=== PATIENT | female | born 1975 | race Hispanic/Latino ===

== ENCOUNTER 2022-05-22 11:34 | Outpatient (CLI) | payer OTHER, SELFPAY | END 2022-05-22 11:35 | disposition home or self-care (01) | LOC: ANHLAB 11:43 | PROVIDERS: Visit Provider Urology | DX: N39.3 Stress incontinence (female) (male) (principal); Z01.818 Encounter for other preprocedural examination | CPT/HCPCS: 87086; 87088 ==

== ENCOUNTER 2022-05-27 02:13 | Day surgery (SDC) | payer OTHER, SELFPAY ==
--- NOTE | 2022-05-19 16:02 | PM.IMHP ---
H&P: HPI History of Present Illness Date/Time: 05/19/22 16:02 Chief Complaint: Stress incontinence Narrative: 46-year-old stress incontinence. This iron surgical intervention. Alternative options including observation Kegel exercises discussed as well Review of Systems Review of Systems: All systems reviewed & are unremarkable except as noted in HPI and below Exam Narrative: no acute distress normal breathing alert and oriented x3 positive urethral mobility Assessment and Plan Assessment and plan (1) TANNER (stress urinary incontinence, female): Code(s): N39.3 - Stress incontinence (female) (male) Status: Acute Assessment and Plan: urethral sling. Understands risks of bleeding, infection, lack of efficacy, recurrence, hip and leg pain, dyspareunia, obstructive voiding requiring secondary procedure, mesh related complications. Agrees to proceed
[2022-05-20 14:16] VITALS: BMI 31.0
--- NOTE | 2022-05-20 14:23 | PC.NURSE ---
Report to the Outpatient Waiting Room, entrance under the green pavilion located off [facility], at time _0945___ on date __05/27/22__. Planned Procedure Time: _1145_. Time changes happen often and if your time is changed the preop area will call you the afternoon before. - You and your visitor will be asked to self-screen and do not enter if you have any COVID symptoms. - We encourage only one visitor and NO visitors under age 16 are allowed at this time. Your visitor will receive communication by the phone number that is given day of service. - The patient visitor is requested to social distance or may leave the building when not with patient due to restrictions. - A mask is required within the hospital. Patients may have clear liquids (water, carbonated beverages, clear teas, apple juice) until 3 hours prior to surgery with a maximum of 20 ounces. - No food from midnight until time of surgery - Infants may have breast milk until 4 hours before surgery, infant formula 6 hours prior to surgery. - Children will be allowed to drink immediately following surgery. If applicable, please bring a bottle or sippy cup to assist with drinking. Juice, water, soda, and popsicles are readily available. For infants on formula, please bring formula the day of surgery. Pacifiers are allowed. Take the following medications with a SIP of water the morning of surgery: __NONE Medications to discontinue per physician NONE Date to take last dose Please no make-up, nail nepalese, hairspray, perfume, deodorant, or body powder the day of surgery. No jewelry (including any body piercings) or valuables the day of surgery, leave them at home. Please take a shower or bath the night before, or the morning of, surgery with an antibacterial soap. Wear comfortable, loose fitting clothing. Children are encouraged to wear pajamas. - Jewelry must be removed prior to entering the operating room. Rings and piercings that are not removed may be cut off. - The hospital will not accept responsibility for valuables. - Please leave all valuables, including medications, at home the day of surgery. If you are going home after surgery, a licensed tow motor driver must drive you home. - NO public transportation without another adult. - We recommend that an adult stay with you for 24 hours following discharge. - We also recommend that you do not drive, make important decision, drink alcoholic beverages, or take any drugs that were not prescribed by your health care provider for at least 24 hours after your discharge time. For Pediatric surgeries, we recommend two adults accompany the child home. Follow any additional instructions given to you from your surgeon. If you or anyone in your household have experienced Covid symptoms in the past week, please notify your surgeon or the nurse liaison at the phone number below for possible testing. Telephone instructions given to _PATIENT_and asked if any additional questions and then verbalized understanding. Patient advised to call surgeon office or pre surgery nurse liaison [phone] if any additional questions.
--- NOTE | ~2022-05-27 | XR_ITS ---
EXAMINATION: XR retrograde pyelo w/stent RT DATE: 05/27/2022 13:42 INDICATION: Right internal ureteral stent placement TECHNIQUE: Fluoroscopic images from a right internal ureteral stent placement are submitted for ruperto Soto C5 seconds of fluoroscopy time. 72 fluoroscopic images FINDINGS: There is a right double-J internal ureteral stent projecting in expected position, with proximal [place] loop at the level of the renal pelvis and distal loop in the pelvis within the bladder lumen. IMPRESSION: 1. Right internal ureteral stent placement. Please refer to real-time procedural findings for mac weeks. Reviewed, dictated and finalized at location B. IMPRESSION: 1. Right internal ureteral stent placement. Please refer to real-time procedu ral findings for details.
--- NOTE | 2022-05-27 07:14 | WPDHPUPDATE1 ---
History and Physical Update Update Date/Time: 05/27/22 07:14 History and Physical has been reviewed, including an updated exam of the patient. There are NO changes in the patient's condition. Risks, benefits, and alternatives have been discussed and questions answered. Patient agrees to proceed with procedure.
[2022-05-27 10:13] VITALS: BP 126/77; PULSE 80; RESP 16; TEMP 36.6; O2SAT 99
--- NOTE | 2022-05-27 10:53 | P.PNAN_ITS ---
Anes - Initial Pre Proc Eval Procedure: Operation Date: 05/27/22 12:00 Proposed Procedures p Urethral Sling - Doe Dash MD s Right Ureteroscopy, Right Stent Placement, Holmium Laser Procedure - Doe Dash MD Date/Time: 05/27/22 10:53 Surgeon: Doe Dash MD Pre Op Diagnosis: Stress Incont Patient Data Age: 46 Gender: F Height: 1.63 m Weight: 96.8 kg Last Vital Signs Temp 36.6 C 05/27/22 10:13 Pulse 80 05/27/22 10:13 Resp 16 05/27/22 10:13 BP 126/77 05/27/22 10:13 Pulse Ox 99 05/27/22 10:13 O2 Del Method Room Air 05/27/22 10:13 Allergies Allergy/AdvReac Type Severity Reaction Status Date / Time shellfish derived Allergy Severe Anaphylaxis Verified 05/27/22 10:24 Home Medications Medication Instructions Recorded Confirmed Type No Home Medications 05/20/22 05/27/22 History Patient hx anesthesia problems: none Family hx anesthesia problems: none Results Review: All pre-operative results and documents have been reviewed as part of the pre- operative evaluation. [facility] Past Medical History Medical History (Updated 05/27/22 @ 10:54 by Ike Quigley MD) Obesity Surgical History Surgical History (Updated 05/27/22 @ 10:54 by Ike Quigley MD) History of cholecystectomy Social History Social History Smoking status: Never smoker Alcohol intake: current Alcohol use details: 2 PER MONTH Substance use: never Living arrangements: with family Anes - Eval Final PreProcedure Day of Procedure 05/27/22 10:53 Patient weight: obese Heart: regular rate and rhythm Lungs: clear to auscultation Airway: Mallampati scale class II Neurological: alert and oriented Last oral intake: >/= 8 hours ASA classification: II Emergent: no Anesthetic plan: proceed Anesthesia type and monitoring: general LMA and standard monitoring Results Review: All pre-operative results and documents have been reviewed as part of the pre- operative evaluation. Informed Consent: The patient's anesthetic plan and its attendant risks and benefits were discussed with the patient/family/POA. Questions were solicited and answers provided to the satisfaction of the patient/family/POA.
[2022-05-27] MEDS: LACTATED RINGERS 1,000 ML 30 ML IV CONT (11:36)
[2022-05-27] MEDS: ceFAZolin 2 GM/D5W 50 ML 2 GM/50 ML BAG IVPB (11:43)
[2022-05-27] MEDS: BUPIVACAINE/EPINEPHRINE 0.25% 50 ML VIAL INFILTRATE (12:07)
[2022-05-27 13:07] VITALS: BP 119/84; PULSE 101; RESP 18; O2SAT 100
--- NOTE | 2022-05-27 13:18 | W.PM.PROC2 ---
Procedure Note - Detailed Date of Procedure 05/27/22 Pre-op Diagnosis Stress Incont large right ureteral stone Post-op Diagnosis Same Procedure Performed mid urethral sling cystoscopy right retrograde pyelogram right ureteroscopy with laser lithotripsy stent placed Surgeon Doe Dash MD Aquatics Instructor none Anesthesia General Indications This is a female with confirm stress urinary incontinence. She desires surgical correction. She understands the risks of bleeding, infection, injury to the urinary tract, vaginal mesh extrusion, urinary tract mesh erosion, obstructive voiding requiring a secondary procedure, hip and leg pain, dyspareunia, inability to improve overactive bladder symptoms. She agrees to proceed. she also has a very large asymptomatic right ureteropelvic junction stone with moderate hydronephrosis. This stone is 16 mm in size. I was not able to get a lithotripsy machine at the facility today. I will make attempt ureteroscopy as she is going to be under anesthesia. She understands risks of bleeding, infection, damage to the ureter or urinary tract, inability to remove the stone. she understood she may need more than 1 procedure to do with the stone Description of Procedure She was correctly identified. Informed consent obtained. She was brought the operating room. She was given appropriate anesthesia. She was given appropriate perioperative antibiotics. A time-out performed. I marked out the site of the inner thigh incisions. I anesthetized the skin and made those incisions. I anesthetized the anterior vaginal wall over the mid urethra. I made a 1 cm incision. I dissected out laterally taking great care not to injure the refilled vaginal wall. I passed the helical trocars. First on the left. Then on the right. I did this from the thigh incision towards the vaginal incision. The sling was connected to the trocars and brought out through the thigh incision. I tensioned the sling appropriately. I cut and the plastic sheaths. I then closed the incision with 2 0 Vicryl. On cystoscopy there is no tumors or surgical artifact. There was no surgical artifact in the urethra. I cut the excess sling material. Close incisions with glue. I then visualized the stone under fluoroscopy. She had a very large proximal ureteral stone. I performed a right retrograde pyelogram. She had a delicate ureter. The stone was seen as a filling defect. She had moderate hydronephrosis proximal to the stone. I placed a guidewire into the kidney. By placed the guidewire the stone flipped into the midpole area of the kidney. The stone was now out of the ureter. I dilated the ureter with 810 dilator. I placed a 2nd superstiff wire. I placed the ureteral access sheath all the way up into the renal pelvis. This went quite easily without any trauma of the ureter. I then performed ureteroscopy. The stone was encountered. It was very large. Due to the large size of the stone I could not flex the ureteral scope to access all portions of the stone. It was also so large I could not basket the stone and move it into a more favorable location. I did make an attempt to perform holmium laser lithotripsy. I did this with a dusting setting. I dusted for approximately 30 minutes. I made some progress on the stone but again due to the flexion restrictions of the scope I was not able to access all portions of the stone. In light of this and in light of the fact it was now in the kidney I felt it was a more appropriate stone for lithotripsy. At this point I decided to place a stent. I removed the access sheath. I examined the ureter on the way down and there is no sign of any ureteral injury. I then placed a 4.8 variable length stent. Proximal coil was in the renal pelvis. Distal coil in the bladder. Her bladder was drained. She was awakened and transferred to PACU in stable condition. Implants Urethral sling Estimated Blood
[2022-05-27 13:20] VITALS: BP 127/83; PULSE 96; RESP 18; O2SAT 95
[2022-05-27] MEDS: fentaNYL CITRATE INJ (*CRX) 100 MCG/2 ML VIAL 25 MCG IV PUSH (13:20)
[2022-05-27 13:35] VITALS: BP 128/87; PULSE 101; RESP 18; O2SAT 98
[2022-05-27 13:38] VITALS: BP 131/77; PULSE 91; RESP 18
--- NOTE | 2022-05-27 14:00 | SUR.PHASEII ---
VOIDED X 1.
[2022-05-27 14:05] VITALS: BP 127/77; PULSE 91; RESP 18
[2022-05-27] MEDS: oxyCODONE HCL (*CRX) 5 MG TAB IR PO (14:14)
[2022-05-27] MEDS: ONDANSETRON INJ 4 MG/2 ML VIAL IV PUSH (14:28)
== END 2022-05-27 14:45 | disposition home or self-care (01) ==
PROVIDERS: PCP Family Medicine; Visit Provider Urology
PROC: (CPT 57288; principal; 2022-05-27 12:00)
PROC: (CPT 52352; 2022-05-27 12:00)
DX: N39.3 Stress incontinence (female) (male) (principal); N13.2 Hydronephrosis with renal and ureteral calculous obstruction
CPT/HCPCS: 57288; 52356; 74420; A9270; C1769; C1771; C1894; C2617; J0690; J1100; J1200; J2250; J2405; J2704; J3010; J7120

== ENCOUNTER 2022-05-31 01:04 | Day surgery (SDC) | payer OTHER, SELFPAY ==
[2022-05-28 14:54] VITALS: BMI 35.6
--- NOTE | 2022-05-28 14:59 | PC.NURSE ---
Report to the Outpatient Waiting Room, entrance under the green pavilion located off [facility], at time 0600 on date 05/31/22. Planned Procedure Time: 0730. Time changes happen often and if your time is changed the preop area will call you the afternoon before. - You and your visitor will be asked to self-screen and do not enter if you have any COVID symptoms. - We encourage only one visitor and NO visitors under age 16 are allowed at this time. Your visitor will receive communication by the phone number that is given day of service. - The patient visitor is requested to social distance or may leave the building when not with patient due to restrictions. - A mask is OPTIONAL within the hospital. Patients may have clear liquids (water, carbonated beverages, clear teas, apple juice) until 3 hours prior to surgery with a maximum of 20 ounces. - No food from midnight until time of surgery Take the following medications with a SIP of water the morning of surgery: PAIN PILL IF NEEDED Medications to discontinue per physician: N/A Date to take last dose: N/A Please no make-up, nail belizean, hairspray, perfume, deodorant, or body powder the day of surgery. No jewelry (including any body piercings) or valuables the day of surgery, leave them at home. Please take a shower or bath the night before, or the morning of, surgery with an antibacterial soap. Wear comfortable, loose fitting clothing. - Jewelry must be removed prior to entering the operating room. Rings and piercings that are not removed may be cut off. - The hospital will not accept responsibility for valuables. - Please leave all valuables, including medications, at home the day of surgery. If you are going home after surgery, a licensed driver/sales workers must drive you home. - NO public transportation without another adult. - We recommend that an adult stay with you for 24 hours following discharge. - We also recommend that you do not drive, make important decision, drink alcoholic beverages, or take any drugs that were not prescribed by your health care provider for at least 24 hours after your discharge time. Follow any additional instructions given to you from your surgeon. If you or anyone in your household have experienced Covid symptoms in the past week, please notify your surgeon or the nurse liaison at the phone number below for possible testing. Telephone instructions given to PT - SHARLA PATEL and asked if any additional questions and then verbalized understanding. Patient advised to call surgeon office or pre surgery nurse liaison [phone] if any additional questions.
--- NOTE | ~2022-05-31 | XR_ITS ---
EXAMINATION: XR abdomen/kub 1V DATE: 05/31/2022 06:32 INDICATION: Right-sided urolithiasis for planned lithotripsy. TECHNIQUE: A supine view of the abdomen on 2 radiographs was obtained. COMPARISON: 05/27/2022 FINDINGS: Right internal ureteral stent remains in expected position with loops formed in the right renal pelvi s and in the bladder. Unchanged 2.5 x 1.5 similar stone at the right renal pelvis. No other evident u rolithiasis. A few phleboliths in the pelvis. T-shaped IUD in expected position in the central pelvis . Cholecystectomy clips in right upper quadrant. Normal bowel gas pattern. Lung bases are clear. IMPRESSION: 1. 2.5 x 1.5 cm stone at the right renal pelvis with right internal ureteral stent in expected positi on. 2. IUD. Reviewed, dictated and finalized at location A. IMPRESSION: 1. 2.5 x 1.5 cm stone at the right renal pelvis with right internal ureteral st ent in expected position. 2. IUD.
--- NOTE | 2022-05-31 06:36 | P.PNAN_ITS ---
Anes - Initial Pre Proc Eval Procedure: Operation Date: 05/31/22 07:30 Proposed Procedures p Right Extracorporeal Shock Wave Lithotripsy, - Luis Deleon MD s Possible Cystoscopy, Possible Right Stent Removal/Exchange - Luis Deleon MD Date/Time: 05/31/22 06:36 Surgeon: Luis Deleon MD Pre Op Diagnosis: right kidney stone Patient Data Age: 46 Gender: F Height: 1.63 m Weight: 94.35 kg Allergies Allergy/AdvReac Type Severity Reaction Status Date / Time shellfish derived Allergy Severe Anaphylaxis Verified 05/31/22 06:14 Home Medications Medication Instructions Recorded Confirmed Type docusate sodium 100 mg capsule 100 mg PO BID #60 caps 05/27/22 05/31/22 Rx (Colace) hydrocodone 5 mg-acetaminophen 325 1 tablet PO Q6H PRN pain #30 tabs 05/27/22 05/31/22 Rx mg tablet oxybutynin chloride 5 mg tablet 5 mg PO TID PRN bladder spasm #60 05/27/22 05/31/22 Rx tabs phenazopyridine 200 mg tablet 200 mg PO TID PRN pain 6 doses #30 05/27/22 05/31/22 Rx (Pyridium) tabs Patient hx anesthesia problems: none Family hx anesthesia problems: none Results Review: All pre-operative results and documents have been reviewed as part of the pre- operative evaluation. [facility] Past Medical History Medical History Obesity Surgical History Surgical History History of cholecystectomy Social History Social History Smoking status: Never smoker Alcohol intake: never Alcohol use details: 2 PER MONTH Substance use: never Substance use type: does not use Living arrangements: with family Spiritual care concerns: No Anes - Eval Final PreProcedure Day of Procedure 05/31/22 06:36 Patient weight: obese Heart: regular rate and rhythm Lungs: clear to auscultation Airway: Mallampati scale class II Neurological: alert and oriented Last oral intake: >/= 8 hours ASA classification: II Emergent: no Anesthetic plan: proceed Anesthesia type and monitoring: general LMA and standard monitoring Results Review: All pre-operative results and documents have been reviewed as part of the pre- operative evaluation. Informed Consent: The patient's anesthetic plan and its attendant risks and benefits were discuss ed with the patient/family/POA. Questions were solicited and answers provided to the satisfaction of the patient/family/POA.
[2022-05-31] MEDS: LACTATED RINGERS 1,000 ML 30 ML IV CONT ×2 (06:53→08:18)
[2022-05-31 06:56] VITALS: BP 123/75; PULSE 75; RESP 16; TEMP 36.8; O2SAT 98
[2022-05-31 07:03] LABS: INR 1.1; Prothrombin Time 14.1 Seconds (11.1-14.7)
[2022-05-31 07:04] LABS: Partial Thromboplastin Time 31.1 SECONDS (22.3-36.8)
--- NOTE | 2022-05-31 07:17 | WPDHPUPDATE1 ---
History and Physical Update Update Date/Time: 05/31/22 07:17 History and Physical has been reviewed, including an updated exam of the patient. There are NO changes in the patient's condition. Risks, benefits, and alternatives have been discussed and questions answered. Patient agrees to proceed with procedure. Proceed with eswl right renal calculus
[2022-05-31] MEDS: ceFAZolin 2 GM/D5W 50 ML 2 GM/50 ML BAG IVPB (07:28)
--- NOTE | 2022-05-31 08:15 | W.PM.PROC2 ---
Procedure Note - Detailed Date of Procedure 05/31/22 Pre-op Diagnosis right kidney stone Post-op Diagnosis Same Procedure Performed ESWL right renal calculus Surgeon Luis Deleon MD Anesthesia General Description of Procedure Patient is taken the operative suite correctly identified. Once anesthesia was obtained the stone was localized in both planes. Two thousand five hundred shocks were given the stone. There appeared to fragment but the patient has an extremely large stone measuring at least 2 cm. Patient is taken recovery stable condition. She will follow-up in 7-10 days with KUB Drains Yes Packing No Pathology None sent Complications No immediate complications Condition Stable Disposition PACU
[2022-05-31 08:18] VITALS: BP 109/72; PULSE 96; RESP 16; TEMP 36.9; O2SAT 100
[2022-05-31 08:30] VITALS: BP 123/75; PULSE 80; RESP 16; O2SAT 100
[2022-05-31 08:58] VITALS: BP 120/77; PULSE 75; RESP 12; O2SAT 98
[2022-05-31 09:06] VITALS: BP 125/77; PULSE 81; RESP 12
[2022-05-31 09:24] VITALS: BP 124/74; PULSE 76; RESP 12
== END 2022-05-31 09:35 | disposition home or self-care (01) ==
PROVIDERS: PCP Family Medicine; Visit Provider Urology
PROC: (CPT 50590; principal; 2022-05-31 07:30)
PROC: (CPT 52352; 2022-05-31 07:30)
DX: N20.0 Calculus of kidney (principal); E66.9 Obesity, unspecified; Z68.35 Body mass index [BMI] 35.0-35.9, adult
CPT/HCPCS: 50590; 36415; 74018; 85610; 85730; J0690; J1100; J2250; J2405; J2704; J3010; J7120

== ENCOUNTER 2022-06-13 10:23 | Outpatient (CLI) | payer OTHER, SELFPAY | END 2022-06-13 10:24 | disposition home or self-care (01) | PROVIDERS: PCP Family Medicine; Visit Provider Urology | DX: N20.1 Calculus of ureter (principal); Z01.818 Encounter for other preprocedural examination | CPT/HCPCS: 87077; 87086; 87088 ==

== ENCOUNTER 2022-06-18 00:59 | Day surgery (SDC) | payer OTHER, SELFPAY ==
[2022-06-13 09:14] VITALS: BMI 35.9
--- NOTE | 2022-06-13 09:15 | PC.NURSE ---
Report to the Outpatient Waiting Room, entrance under the green pavilion located off [facility], at time 6:30 on date 06/18/22. Planned Procedure Time: 8:30. Time changes happen often and if your time is changed the preop area will call you the afternoon before. - You and your visitor will be asked to self-screen and do not enter if you have any COVID symptoms. - We encourage only one visitor and NO visitors under age 16 are allowed at this time. Your visitor will receive communication by the phone number that is given day of service. - The patient visitor is requested to social distance or may leave the building when not with patient due to restrictions. - A mask is OPTIONAL within the hospital. Patients may have clear liquids (water, carbonated beverages, clear teas, apple juice) until 3 hours prior to surgery (5:30) with a maximum of 20 ounces. - No food from midnight until time of surgery Take the following medications with a SIP of water the morning of surgery: NONE Medications to discontinue per physician: N/A Date to take last dose: N/A Please no make-up, nail [place] islander, hairspray, perfume, deodorant, or body powder the day of surgery. No jewelry (including any body piercings) or valuables the day of surgery, leave them at home. Please take a shower or bath the night before, or the morning of, surgery with an antibacterial soap. Wear comfortable, loose fitting clothing. - Jewelry must be removed prior to entering the operating room. Rings and piercings that are not removed may be cut off. - The hospital will not accept responsibility for valuables. - Please leave all valuables, including medications, at home the day of surgery. If you are going home after surgery, a licensed roll off driver must drive you home. - NO public transportation without another adult. - We recommend that an adult stay with you for 24 hours following discharge. - We also recommend that you do not drive, make important decision, drink alcoholic beverages, or take any drugs that were not prescribed by your health care provider for at least 24 hours after your discharge time. Follow any additional instructions given to you from your surgeon. If you or anyone in your household have experienced Covid symptoms in the past week, please notify your surgeon or the nurse liaison at the phone number below for possible testing. Telephone instructions given to PT - SHARLA PATEL and asked if any additional questions and then verbalized understanding. Patient advised to call surgeon office or pre surgery nurse liaison [phone] if any additional questions.
--- NOTE | 2022-06-17 13:44 | WPDANESEPPF ---
Anes - Initial Pre Proc Eval Procedure: Operation Date: 06/18/22 08:30 Proposed Procedures p Cystoscopy, Right Ureteroscopy, Right Retrograde Pyelogram, Right Stone Extraction, Holmium Laser Lithotripsy, Possible Right Stent Placement - Luis Deleon MD Date/Time: 06/17/22 13:44 Surgeon: Luis Deleon MD Pre Op Diagnosis: Rt Ureteral Kidney Stone Patient Data Age: 46 Gender: F Height: 1.63 m Weight: 95 kg Allergies Allergy/AdvReac Type Severity Reaction Status Date / Time shellfish derived Allergy Severe Anaphylaxis Verified 06/18/22 06:44 Home Medications Medication Instructions Recorded Confirmed Type tamsulosin 0.4 mg capsule (Flomax) 0.4 mg PO DAILY 06/13/22 06/13/22 History Patient hx anesthesia problems: none Family hx anesthesia problems: none Results Review: All pre-operative results and documents have been reviewed as part of the pre-operative evaluation. [facility] Past Medical History Medical History Obesity Surgical History Surgical History History of cholecystectomy Social History Social History Smoking status: Never smoker Alcohol intake: never Alcohol use details: 2 PER MONTH Substance use: never Substance use type: does not use Living arrangements: with family Spiritual care concerns: No Anes - Eval Final PreProcedure Day of Procedure 06/17/22 13:44 Patient weight: obese Heart: regular rate and rhythm Lungs: clear to auscultation Airway: Mallampati scale class II Neurological: alert and oriented Last oral intake: >/= 8 hours ASA classification: II Emergent: no Anesthetic plan: proceed Anesthesia type and monitoring: general LMA and standard monitoring Results Review: All pre-operative results and documents have been reviewed as part of the pre-operative evaluation. Informed Consent: The patient's anesthetic plan and its attendant risks and benefits were discussed with the patient/family/POA. Questions were solicited and answers provided to the satisfaction of the patient/family/POA.
[2022-06-18] VITALS (7 sets, daily range): BP systolic 116–144; BP diastolic 81–96; PULSE 76–95; RESP 16–20; TEMP 36.3–36.8; O2SAT 97–100
--- NOTE | ~2022-06-18 | XR_ITS ---
EXAMINATION: XR retrograde pyelo w/stent RT DATE: 06/18/2022 09:15 INDICATION: Nephrolithiasis for stone extraction TECHNIQUE: 3 fluoroscopic images of the abdomen and pelvis were obtained during procedure performed ethel Deleon. Radiologist was not present for the imaging or procedure. The amount of fluoroscopy t marichuy used during this procedure was 0.5 minutes. COMPARISON: 05/31/2022 FINDINGS: Cannulation of the right ureter with retrograde contrast injection demonstrates mild right hydronephr osis. An initial image there is suggestion of a few subtle filling defects in the calyces of the righ t kidney which could represent stones or stone fragments. These are not evident on the subsequent archana ge and may have been extracted. Final images demonstrate placement of a right internal ureteral stent with loops formed in the right renal pelvis and in the bladder. IUD in expected position in the cent ral pelvis. IMPRESSION: 1. Suggestion of a few subtle filling defects in the right renal collecting system on the initial but not on the subsequent images suggesting stones or stone fragments which may been extracted. Correlat e with procedure note. 2. Placement of a right internal ureteral stent which is in expected position. 3. IUD also in expected position. Reviewed, dictated and finalized at location [facility]. [facility] IMPRESSION: 1. Suggestion of a few subtle filling defects in the right renal collecting sys tem on the initial but not on the subsequent images suggesting stones or stone fragments which may been extracted. Correlate with procedure note. 2. Placement of a right internal ureteral stent which is in expected position. 3. IUD also in expected position.
[2022-06-18] MEDS: LACTATED RINGERS 1,000 ML 30 ML IV CONT (06:57)
--- NOTE | 2022-06-18 07:23 | WPDHPUPDATE1 ---
History and Physical Update Update Date/Time: 06/18/22 07:23 History and Physical has been reviewed, including an updated exam of the patient. There are NO changes in the patient's condition. Risks, benefits, and alternatives have been discussed and questions answered. Patient agrees to proceed with procedure. Proceed with cysto, right retrograde, right ureteroscopy with laser, stone extraction, stent exchange.
[2022-06-18] MEDS: ceFAZolin 2 GM/D5W 50 ML 2 GM/50 ML BAG IVPB (08:24)
[2022-06-18] MEDS: LIDOCAINE HCL 2% GEL UROJET 10 ML PKG MUCOUS MEM (08:40)
--- NOTE | 2022-06-18 09:11 | W.PM.PROC2 ---
Procedure Note - Detailed Date of Procedure 06/18/22 Pre-op Diagnosis Rt Ureteral Kidney Stone Post-op Diagnosis Same Procedure Performed Cystoscopy, right retrograde pyelogram, right ureteroscopy with stone extraction, right ureteral stent exchange 4.8 Israeli contour Surgeon Luis Deleon MD Anesthesia General Description of Procedure Patient was taken to the operative suite correctly identified. Once anesthesia was obtained she was placed in dorsal lithotomy position and prepped and draped usual sterile fashion. Twenty-two Israeli scope inserted the bladder. The prior stent was grasped brought out the meatus. A guidewire was inserted in through the stent. Rigid ureteral scope was then inserted into the right ureteral orifice. Multiple stones were noted and grasped with an escape basket. As we progressed up the ureter we exchanged the rigid ureteral scope for an access sheath and mini flexible ureteral scope. The remaining stones were then retrieved and sent for analysis. She had at least 15-20 stones that we retrieved. We inspected the kidney in only 1 stone fragment was noted. We grasped this and removed that also. Pyelogram was then performed to confirm placement of the stent. 4.8 Israeli contour stent was then placed with the proximal end coiled in the renal pelvis and the distal in the bladder. Bladder was drained. 2% viscous lidocaine was inserted into the urethra patient is taken recovery stable condition. She will follow-up in approximately 1-2 weeks for stent removal with cystoscopy in the office. Please send copy of this report to Dr. Deleon is office Estimated Blood Loss 0 Drains Yes Packing No Pathology Yes Complications No immediate complications Condition Stable Disposition PACU
== END 2022-06-18 11:03 | disposition home or self-care (01) ==
PROVIDERS: PCP Family Medicine; Visit Provider Urology
PROC: (CPT 52352; principal; 2022-06-18 08:30)
DX: N20.1 Calculus of ureter (principal)
CPT/HCPCS: 52332; 52352; 74420; 82365; 88300; A9270; C1758; C1769; C1894; C2617; J0690; J1100; J2250; J2405; J2704; J3010; J7120